=== PATIENT | female | born 1950 | race Caucasian/White ===

== ENCOUNTER 2016-10-28 08:10 | Outpatient (CLI) | payer MEDICARE, OTHER ==
[~2016-10-28] VITALS: Ht 162.6 cm; Wt 64.5 kg
--- NOTE | ~2016-10-28 | HEMODYNAMI ---
PATIENT:EPIFANIO MARTIN MEDICAL RECORD: [id number] : 50 LOCATION:D.CAT ADMISSION DATE: 10/28/16 Generatedon:11/01/20167:58 Patient name: EPIFANIO MARTIN Patient #: [id number] SSN: : 1950 Date of study: 10/28/2016 Page: Of Hemodynamic Procedure Report Patient Data Patient Demographics Procedure consent was obtained First Name: EPIFANIO Gender: Female Last Name: VERONICA : 1950 [facility] Initial: TATYANA Age: 66 year(s) Patient #: [id number] Race: Additional ID: [id number] Contact details [address]: [address] [place] [address] rd State: [facility] Zip code: [address] Past Medical History History of disease Date Diagnosis Comments Peripheral vascular disease Allergies Allergen Reaction Date Comments Reported Other allergy 10/28/2016 Prevacid, Sulfa Admission Admission Data Admission Date: 10/28/2016 Admission Time: 8:10 Weight (lbs.): 143.3 Weight (kg.): 65 Lab Results Lab Result Date: 10/28/2016 Lab Result Time: 0:00 Biochemistry Name Units Result Min Max BUN mg/dl 14 --(--*-)-- 7 18 Creatinine mg/dl 0.9 --(-*--)-- 0.6 1.3 Glucose mg/dl 222 --(----)-* 74 106 CBC Name Units Result Min Max Hemoglobin g/dl 13.4 -*(----)-- 13.5 17.5 Procedure Procedure Types Cath Procedure Peripheral Cath Diagnostic Procedure Cath Peripheral Gfzje-Rodcwes-Hlz-Off Peripheral vascular Intervention Stent Stent Iliac w/plasty Initial Procedure Description Procedure Date Procedure Date: 10/28/2016 Procedure Start Time: 12:45 Procedure End Time: 13:10 Procedure Staff Name Function Krysta Kelly RT Scrub Essie Chong RT Monitor Ramon Mancilla RT Supervisor Machine Workers Tony Cheung RN Nurse Jorge Patton MD Performing Physician Procedure Data Cath Procedure Fluoroscopy Diagnostic fluoroscopy Total fluoroscopy Time: 4.5 time: 4.5 min min Diagnostic fluoroscopy Total fluoroscopy dose: 200 dose: 200 mGy mGy Contrast Material Contrast Material Type Amount (ml) Isovue 300 117 Entry Location Entry Primary Successful Side Size Upsize 1 Upsize Entry Closure Rudolph ccessful Closure Location (Fr) (Fr) 2 (Fr) Remarks Device Remarks Femoral Right 5 Fr 6 Fr 6 Fr Vascade artery Mid-Length Short Closure System Diagnostic catheters Device Type Used For End Catheter Placement Diagnostic Infinity 5Fr Abdominal 3DRC catheter aortogram with runoff Cordis Tempo 5Fr UF catheter Procedure Complications No complications Procedure Medications Medication Administration Route Dosage Oxygen NC 2 l/min Lidocaine 2% added to field 20 Heparin Flush Bag added to field 2 bags (1000units/500ml NS) 0.9% NaCl I.V. 100 ml/hr Versed I.V. 1 mg Fentanyl I.V. 50 mcg Versed I.V. 1 mg Fentanyl I.V. 50 mcg Heparin Bolus I.V. 4000 units Versed I.V. 1 mg Fentanyl I.V. 50 mcg Versed I.V. 1 mg Fentanyl I.V. 50 mcg Hemodynamics Rest HGB: 13.4 (g/dl) Heart Rate: 63 (bpm) Snapshots Pre Cath Intra NCS Post Cath Vital Signs Time Heart Resp SPO2 NIBP (mmHg) Rhythm Pain Sedation Rate (ipm) (%) Status Level (bpm) 12:26:21 72 26 99 180/76(138) NSR 0 (11) 10(A) , No pain 12:30:52 58 20 99 179/67(125) NSR 0 (11) 10(A) , No pain 12:35:24 60 18 99 155/66(116) NSR 0 (11) 10(A) , No pain 12:39:46 67 16 97 144/65(130) NSR 0 (11) 10(A) , No pain 12:44:07 67 15 97 157/61(115) NSR 0 (11) 10(A) , No pain 12:48:29 69 19 96 145/68(112) NSR 0 (11) 10(A) , No pain 12:52:49 75 16 96 124/51(99) NSR 0 (11) 9(A) , No pain 12:57:03 73 16 95 122/54(94) NSR 0 (11) 9(A) , No pain 13:01:19 81 14 94 124/53(107) NSR 0 (11) 9(A) , No pain 13:05:31 73 16 95 139/61(102) NSR 0 (11) 10(A) , No pain 13:09:30 No Cuff NSR 0 (11) 10(A) , No pain Medications Time Medication Route Dose Verified Delivered Reason Notes Effectiveness by by 12:40:44 Oxygen NC 2 Jorge Buffie used for l/min Abdi Cheung RN procedure 12:40:51 Lidocaine 2% added 20ml Jorge Jorge for local to vial Abdi Patton MD anesthetic field 12:40:57 Heparin Flush added 2 Jorge Jorge used for Bag to bags Abdi Patton MD procedure (1000units/500ml field NS) 12:41:09 0.9% NaCl I.V. 100 Jorge Buffie Per physician ml/hr Abdi Cheung RN 12:43:27 Versed I.V. 1 mg Jorge Buffie for sedation Abdi Cheung RN 12:43:33 Fentanyl I.V. 50 Jorge Buffie for sedation mcg Abdi Cheung RN 12:48:30 Versed I.V. 1 mg Jorge Buffie for sedation Abdi Cheung RN 12:48:33 Fentanyl I.V. 50 Jorge Buffie for sedation mcg Abdi Cheung RN 12:50:44 Heparin Bolus I.V. 4000 Jorge Buffie for verifi ed units Abdi Cheung RN anticoagulation with dr patton 12:54:54 Versed I.V. 1 mg Jorge Buffie for sedation Abdi Cheung RN 12:54:59 Fentanyl I.V. 50 Jorge Buffie for sedation mcg Abdi Cheung RN 12:58:07 Versed I.V. 1 mg Jorge Buffie for sedation Abdi Cheung RN 12:58:11 Fentanyl I.V. 50 Jorge Buffie for sedation mcg Abdi Cheung RN Procedure Log Time Note 12:01:55 Ramon Mancilla RT(R) sent for patient. Start room use. 12:12:56 Time tracking: Regular hours 12:13:00 Plan of Care:Hemodynamics will remain stable., Cardiac rhythm will remain stable., Comfort level will be maintained., Respiratory function will remain adequate., Patient/ family verbilizes understanding of procedure., Procedure tolerated without complication., Recovers from procedure without complications.. 12:19:53 Patient received from Outpatients to CCL 1 Alert and oriented. Tansferred to table in Supine position. 12:19:54 Warm blankets applied, and nettie hugger turned on for patient comfort. 12:19:55 Correct patient and procedure confirmed by team. 12:19:56 Signed procedure consent form obtained from patient. 12:19:57 ECG and BP/O2 sat monitors applied to patient. 12:25:07 Vital chart was started 12:25:08 Full Disclosure recording started 12:27:37 Baseline sample Acquired. 12::44 Rhythm: sinus rhythm 12::56 H&P Date Dictated: 10/25/2016 Within 30 days and on chart., H&P Addendum completed by physician on day of procedure. (MUST COMPLETE FOR ALL OUTPATIENTS). 12::58 Pre-op teaching completed and patient verbalized understanding. 12::58 Pre-procedure instructions explained to patient. 12:28:00 Family in waiting room. 12:28:04 Patient NPO since Midnight. 12:28:22 Patient allergic to Other allergyPrevacid, Sulfa 12:28:40 Is the patient allergic to Iodine/contrast media? No. 12:28:41 Was the patient premedicated? No 12:28:43 Is patient on blood thinner?Yes 12:28:45 ACC The patient was administered the following blood thiners within the last 24 hours: ACCPlavix 12:28:50 Patient diabetic? No. 12:28:59 If diabetic: On Metformin? No 12:29:05 Previous problem with sedation/anesthesia? No ? 12:29:21 Snore? Yes 12:29:22 Sleep apnea? No 12:29:43 Deviated septum? No 12:29:44 Opens mouth fully? Yes 12:29:45 Sticks out tongue? Yes 12:29:51 Airway obstruction? No ? 12:29:55 Dentures? No ? 12:29:59 Pre procedure: right dorsailis pedis pulse 1+ Palpable, but thready & weak; easily obliterated 12:30:09 Modified Alfred's test Radial < 7 seconds 12:30:12 Patient pain scale 0/10 ?. 12:30:23 IV patent on arrival in left hand with 0.9% NaCl at [facility]. 12:35:20 Lab Result : Creatinine 0.9 mg/dl 12:35:20 Lab Result : Hemoglobin 13.4 g/dl 12:35:20 Lab Result : Glucose 222 mg/dl 12:35:20 Lab Result : BUN 14 mg/dl 12:35:23 Lab results completed and on chart. 12:35:27 Right groin area was prepped with chlora-prep and draped in sterile fashion 12:35:28 Sharps counted by scrub and verified by R.N. 12:35:28 Alarms reviewed by R. N. 12:35:39 Use device set Femoral Dx 12:35:43 Acist Syringe opened to sterile field. 12:35:44 Medline Cath Pack opened to sterile field. 12:35:44 Bag Decanter opened to sterile field. 12:35:45 St Roosevelt 260cm J .035 wire opened to sterile field. 12:35:45 Terumo 5Fr Rich[place] Sheath opened to sterile field. 12:35:47 Acist Hand Control opened to sterile field. 12:35:48 Acist Manifold opened to sterile field. 12:35:49 Tegaderm 4 x 4 opened to sterile field. 12:36:36 Physician paged 12:37:54 Zero performed for pressure channel P1 12:37:58 Zero performed for pressure channel P1 12:40:07 Patient Weight : 143.3 lbs 12:40:44 Oxygen 2 l/min NC was given by Tony Cheung RN; used for procedure; 12:40:51 Lidocaine 2% 20ml vial added to field was given by Jorge Patton MD; for local anesthetic; 12:40:57 Heparin Flush Bag (1000units/500ml NS) 2 bags added to field was given by Jorge Patton MD; used for procedure; 12:41:09 0.9% NaCl 100 ml/hr I.V. was given by Tony Cheung RN; Per physician; 12:41:47 --------ALL STOP TIME OUT------ 12:41:48 Final Timeout: patient, procedure, and site verified with staff and physician. All members of the team are in agreement. 12:41:50 Bilateral groins site verified by team. 12:41:54 Physical assessment completed. ASA score P 2 - A patient with mild systemic disease as per Jorge Patton MD. 12:41:58 Sedation plan: IV Moderate Sedation Versed, Fentanyl 12:43:27 Versed 1 mg I.V. was given by Tony Cheung RN; for sedation; 12:43:33 Fentanyl 50 mcg I.V. was given by Tony Cheung RN; for sedation; 12:45:29 Procedure started. 12:45:43 Local anesthetic to right femoral artery with Lidocaine 2% by Jorge Patton MD.INITIAL ACCESS ONLY 12:46:15 A 5 Fr sheath was inserted into the Right Femoral artery 12:46:24 5 Fr UF guide catheter was inserted over the wire 12:47:02 Guide catheter removed. 12:47:25 A Diagnostic Infinity 5Fr 3DRC catheter was advanced over the wire and used for Abdominal aortogram with runoff. 12:47:48 LONG STIFF GLIDE wire advanced. 12:48:04 Terumo ANGLED SS 260CM glide wire opened to sterile field. 12:48:30 Versed 1 mg I.V. was given by Tony Cheung RN; for sedation; 12:48:33 Fentanyl 50 mcg I.V. was given by Tony Cheung RN; for sedation; 12:50:17 WIRE ACROSS LESION 12:50:44 Heparin Bolus 4000 units I.V. was given by Tony Cheung RN; for anticoagulation; verified with dr patton 12:50:50 Terumo TORQUE DEVICE PLASTIC .038 opened to sterile field. 12:50:57 A Cordis Tempo 5Fr UF catheter was advanced over the wire and used for . 12:51:11 Cordis 6Fr Brite Tip 35cm Sheath opened to sterile field. 12:51:28 Guide catheter removed. 12:51:37 Sheath upsized to a 6 Fr Mid-Length. 12:52:33 5 Fr UF guide catheter was inserted over the wire 12:52:36 Abdominal angiogram w/ runoff was performed. 12:52:42 Left leg runoff performed. 12:52:43 Right leg runoff performed. 12:53:24 Merit BasixCompak Inflation Kit opened to sterile field. 12:54:32 Cordis 6Fr Brite Tip 35cm Sheath opened to sterile field. 12:54:54 Versed 1 mg I.V. was given by Tony Cheung RN; for sedation; 12:54:59 Fentanyl 50 mcg I.V. was given by Tony Cheung RN; for sedation; 12:57:21 Inflation number: 1 A Cordis Powerflex Pro 6.0 x 40 x 135cm balloon was prepped and advanced across the Ostial Common Iliac, Right, then inflated to 13 NAVEEN for 0:08 (min:sec). 12:57:33 Inflation number: 2 The Cordis Powerflex Pro 6.0 x 40 x 135cm balloon was reinflated across the Ostial Common Iliac, Right, to 11 NAVEEN for 0:10 (min:sec). 12:58:07 Versed 1 mg I.V. was given by Tony Cheung RN; for sedation; 12:58:11 Fentanyl 50 mcg I.V. was given by Tony Cheung RN; for sedation; 12:58:18 Balloon removed over the wire. 13:00:55 Inflation Number: 3 A Cordis Shea 6 x 18 x 135 stent was prepped and advanced across the Ostial Common Iliac, Right. The stent was deployed at 17 NAVEEN for 0:24 (min:sec). 13:01:06 Stent catheter was removed intact over wire. 13:01:17 Sheath upsized to a 6 Fr Short. 13:02:00 Sheath removed intact; hemostasis achieved with Vascade Closure System to the Right Femoral artery. 13:02:37 Terumo 6Fr Richland Sheath opened to sterile field. 13:02:42 Vascade 6/7 Fr Closure Device opened to sterile field. 13:05:14 Contrast amount:Isovue 300 117ml. 13:05:18 Procedure ended.(Physican Out) 13:05:29 Fluoroscopy time 04.50 minutes. 13:05:34 Flurop Dose total: 200 13:05:34 Fluoroscopy dose: 200 mGy 13:05:35 Sharps counted by scrub and verified by R.N. 13:05:36 Insertion/operative site no bleeding no hematoma. 13:05:39 Post-op/insertion site Right Femoral artery dressed using a 4 x 4 and Tegaderm. 13:05:43 Post right femoral artery:stable 13:05:44 Post Procedure Pulses reassessed and unchanged 13:05:47 Post procedure: right dorsailis pedis pulse 1+ Palpable, but thready & weak; easily obliterated. 13:06:21 Procedure type changed to Cath procedure, Peripheral Cath Diagnostic Procedure, Cath Peripheral, Egbrn-Nokobvq-Lfo-Off, Peripheral vascular Intervention, Stent, Stent Iliac w/plasty Initial 13:09:54 Post procedure rhythm: sinus rhythm 13:09:56 Post procedure instruction explained to patient.Patient verbalizes understanding. 13:09:56 Procedure and supply charges have been captured, reviewed, submitted and are correct. 13:10:00 Procedure Complication : No complications 13:10:02 Vital chart was stopped 13:10:03 See physician's report for complete and final results. 13:10:05 Report given to Pre/Post Procedure Room. 13:10:08 Patient transfered to Pre/Post Procedure Room with Stretcher. 13:10:10 Full Disclosure recording stopped 13:10:10 Procedure ended. 13:10:17 ACC-PCI Only Patient was given prescriptions, or instructed by Jorge Patton MD to start/continue the following medications upon discharge: Plavix 13:10:21 End room use (Document Last) 7:57:51 Left Femoral access not attempted. All pertaining notes removed. Added RFA closure with vascade. SCounts RT(R) Intervention Summary Intervention Notes Time ActionType Lesion and Equipment Action# Pressure Duration Attributes Used 12:57:21 Inflate Ostial Cordis 1 13 00:08 balloon Common Powerflex Iliac, Pro 6.0 x Right 40 x 135cm balloon 12:57:33 Reinflate Ostial Cordis 2 11 00:10 balloon Common Powerflex Iliac, Pro 6.0 x Right 40 x 135cm balloon 13:00:55 Place stent Ostial Cordis 3 17 00:24 Common Shea 6 Iliac, x 18 x Right 135 stent Device Usage Item Name Manufacture Quantity Catalog Hospital Part Current Minima l Lot# / Number Charge Number Stock Stock Serial# Code [facility] 1 [id number] [id number] 045839 020339 20 [employer] Bag Microtek 1 [id number] 785842 51089 855592 5 [employer] Inc. Medline Cardinal 1 [id number] 936072 55255 549713 5 Apps & Zerts Terumo 5Fr Terumo 1 [id number] 827406 656719 239794 [address] Roosevelt 1 949884 633488 911441 022825 30 260cm J .035 wire Acist Hand Acist 1 02644 538938 029113 890141 5 Control Medical Systems Inc Acist Acist 1 31026 541280 383215 363463 5 Manifold Medical Systems Inc Tegaderm 4 3M 1 1626W 753898 596446 518017 5 x 4 Diagnostic Cardinal 1 [id number] 292652 785428 760497 9 Infinity Health 5Fr 3DRC catheter Terumo Terumo 1 [id number] 707269 505746 306356 [address] SS 260CM glide wire Terumo [place] 1 TD01 047868 430004 942742 5 TORQUE Scientific DEVICE PLASTIC .038 Cordis Cardinal 1 [id number] 462961 359210 685754 10 Tempo 5Fr Health UF catheter Cordis 6Fr Cardinal 2 [id number] 809320 183417 033636 1 Brite Tip Health 35cm Sheath Merit Merit 1 [id number] 959710 522399 915164 15 [employer]ishk Medical Inflation Kit Cordis Cardinal 1 [id number] 484971 937975 252845 5 Powerflex Health Pro 6.0 x 40 x 135cm balloon Cordis Cardinal 1 [id number] 798691 882816 5 Shea 6 x Health 18 x 135 stent Terumo 6Fr Terumo 1 [id number] 862066 325481 116181 40 [place] Sheath Vascade 6/7 Cardiva 1 [id number] 431050 627460 354452 5 Fr Closure Medical, Device Inc. Signature Audit Walsh Stage Time Signature Unsigned Intra-Procedure 10/28/2016 Ramon Chaparro Counts 1:12:58 PM RT(R) RT(R) 11/01/2016 7:52:27 AM Intra-Procedure 11/01/2016 Krysta 7:58:08 AM Counts RT(R) Signatures Monitor : Essie Chong RT Signature : Date : Time : [facility] [address] [facility], [place] [address]
[2016-10-28] MEDS ORDERED: PRINIVIL20 MG PO (09:14)
[2016-10-28] MEDS ORDERED: ZOCOR80 MG PO (09:15)
[2016-10-28] MEDS ORDERED: TAMOXIFEN CITRA20 MG PO (09:15)
[2016-10-28] MEDS ORDERED: BAYER CHEWABLE81 MG PO (09:16)
[2016-10-28] MEDS ORDERED: PLAVIX75 MG PO (09:16)
[2016-10-28 09:21] LABS: BASOPHILS 0.4 % (0.0-2.0); HEMATOCRIT 39.5 % (36.0-48.0); HEMOGLOBIN 13.4 g/dL (12-16); IMMATURE GRANULOCYTES 0.3 % (0-5); LYMPHOCYTES 33.4 % (15-50); MCH 32.1 pg (26.0-34.0); MCHC 33.9 g/dL (31.0-37.0); MCV 94.5 fL (80.0-100.0); MEAN PLATELET VOLUME 10.5 fL (7.4-10.4); MONOCYTES 4.6 % (2-11); NEUTROPHILS 57.3 % (40-80); PLATELET COUNT 56 10x3/uL (130-400); RBC 4.18 10x6/uL (4.00-5.40); RDW 11.9 % (11.5-14.5); WBC 7.2 10x3/uL (4.8-10.8)
[2016-10-28 09:25] VITALS: BP 141/49; Ht 162.6 cm; Wt 64.5 kg
[2016-10-28 09:38] LABS: ANION GAP 13.3 mmol/L (8-16); CALCIUM 9.2 mg/dL (8.5-10.1); CREATININE - SERUM 0.9 mg/dL (0.6-1.3); POTASSIUM - SERUM 4.3 mmol/L (3.5-5.1)
--- NOTE | 2016-10-28 13:45 | NUR ---
1345 VSS WITH NO DISTRESS NOTED. AT SIDE SPEAKING TO DR AMADOR ORDERS FOR PATIENT TO RETURN NEXT MONDAY FOR ANOTHER PROCEDURE. OFFICE NOTIFIED
--- NOTE | 2016-10-28 14:03 | NUR ---
HR 68 BP 153/58 CHEST PAIN IS DENIED 6 FR VASCADE R/GROIN CDI NO BLEEDING NO HEMATOMA NOTED. INSTRUCTED PATIENT TO KEEP HEAD FLAT ON PILLOW WITH RLE STRAIGHT
--- NOTE | 2016-10-28 14:28 | NUR ---
SANDWICH AND SODA TO BEDSIDE WITH TO ASSIST. R/GROIN CDI NO BLEEDING NO HEMATOMA NOTED
--- NOTE | 2016-10-28 15:48 | NUR ---
ALL VITALS WNL. R GROIN REMAINS C/D/I WITH NO HEMATOMA OR BLEEDING. AT BEDSIDE.
--- NOTE | 2016-10-28 16:56 | NUR ---
1630 ELEVATED HOB, WILL MONITOR R GROIN FOR BLEEDING. ALL VITALS WNL.
--- NOTE | 2016-10-28 17:05 | NUR ---
PIV REMOVED FROM LEFT HAND WITH BANDAID APPLIED. UP TO BEDSIDE TO DRESS WITH ASSIST FROM . AMBULATED TO BATHROOM TO VOID.
--- NOTE | 2016-10-28 17:29 | NUR ---
PATIENT C/O HEARTBURN, NO EKG CHANGES. DENIES CHEST PAIN. V/O FOR GI COCTAIL GIVEN. WILL MONITOR FOR EFFCTIVENESS. D/C INSTRUCTIONS DISCUSSED WITH PATIENT AND , WHEELED OUT VIA WHEELCHAIR.
--- NOTE | 2016-11-04 08:46 | OP ---
PATIENT NAME: EPIFANIO MARTIN MEDICAL RECORD: [id number] :50 LOCATION:D.CAT ADMISSION DATE: SURGEON: ANNMARIE AMADOR MD DATE OF OPERATION: 10/28/2016 PROCEDURES: 1. Stent placement, iliac right. 2. SALES AND SERVICE REPRESENTATIVE iliac, right. 3. Aortofemoral runoff. INDICATION: Claudication and peripheral vascular disease. PROCEDURE IN DETAIL: After informed consent was obtained and after detailed explanation of risks, benefits as well as alternative therapies, the patient elected to proceed with angiogram and angioplasty. The right femoral area was prepped and draped in normal sterile fashion. The right femoral artery was cannulated via modified Seldinger technique with placement of 6-Serbian sheath. All catheters exchanged through the sheath. FINDINGS: Abdominal aortography was performed. The catheter was pulled down for aortofemoral runoff. Abdominal aortography reveals no significant abdominal aortic disease. Stents from the legs to extend into the lower abdominal aorta. There is a renal artery stent on the right, it does appear to have at least 80% in-stent restenosis. RIGHT LE. There are stents throughout the common and external iliac just after the stents, there is a 90% stenosis. 2. Femoral system: The common superficial and deep femoral have moderate irregularities, but no flow-limiting stenosis. 3. Popliteal and infrapopliteal vessels are widely patent with good 3-vessel runoff to the foot. LEFT LE. There were previously placed stents throughout the common and external iliac with 2 areas of in-stent restenosis to at least 80%. 2. Femoral system: The common superficial and deep femoral have moderate irregularities, but no flow-limiting stenosis. 3. Popliteal and infrapopliteal vessels are widely patent with good 3-vessel runoff to the foot. SALES AND SERVICE REPRESENTATIVE STENT OF THE ILIAC ON THE RIGHT: We were able to get a 6 x 18 Cordis Shea stent in there, we took this at 15 atmospheres. Result was 30% to 40% residual stenosis despite ballooning that is up 15 atmospheres, this would not give ____ as it was a heavily calcified vessel. IMPRESSION: Successful SALES AND SERVICE REPRESENTATIVE stent of the right iliac going from 90% initial stenosis to 40% residual. TRANSINT:[id number] Voice Confirmation ID: [id number] DOCUMENT ID: [id number] OPERATIVE REPORT [id number] EPIFANIO MARTINANNMARIE SORIA MD at 0846 CC: [id number] DICTATION DATE: 10/28/16 1309 PRESIDING JUDGE: 10/28/16 1946 DEP CLI 10/28/16 [place] [id number] [place] [address]
== END 2016-10-28 17:31 | disposition home or self-care (01) ==
LOC: D.CATH 08:10
PROVIDERS: Internal Medicine Interventional Cardiology
DX: I70.211 Atherosclerosis of native arteries of extremities with intermittent claudication, right leg (principal); T82.856A Stenosis of peripheral vascular stent, initial encounter

== ENCOUNTER 2016-11-04 08:20 | Outpatient (CLI) | payer MEDICARE, OTHER ==
[~2016-11-04] VITALS: Ht 162.6 cm; Wt 64.5 kg
--- NOTE | ~2016-11-04 | HEMODYNAMI ---
PATIENT:EPIFANIO MARTIN MEDICAL RECORD: [id number] : 50 LOCATION:D.CAT ADMISSION DATE: 11/04/16 Generatedon:11/04/201610:52 Patient name: EPIFANIO MARTIN Patient #: [id number] SSN: : 1950 Date of study: 11/04/2016 Page: Of Hemodynamic Procedure Report Patient Data Patient Demographics Procedure consent was obtained First Name: EPIFANIO Gender: Female Last Name: VERONICA : 1950 [facility] Initial: TATYANA Age: 66 year(s) Patient #: [id number] Race: Additional ID: [id number] Contact details Address: [address] [place] [address] rd State: [facility] Zip code: [address] Past Medical History History of disease Date Diagnosis Comments Peripheral vascular disease Allergies Allergen Reaction Date Comments Reported Other allergy 10/28/2016 Prevacid, Sulfa Admission Admission Data Admission Date: 11/04/2016 Admission Time: 8:20 Procedure Procedure Types Cath Procedure Miscellaneous Procedures Moderate Sedation up to 15 minutes Peripheral vascular Intervention Stent Stent Iliac w/plasty Initial Procedure Description Procedure Date Procedure Date: 11/04/2016 Procedure Start Time: 10:34 Procedure End Time: 10:50 Procedure Staff Name Function Jorge Patton MD Performing Physician John Warner RT Scrub Kael Davis RT Monitor Kadie Huerta RN Nurse Rmaesh Seals RN Instrument Shop Supervisor Procedure Data Cath Procedure Fluoroscopy Diagnostic fluoroscopy Total fluoroscopy Time: 2.5 time: 2.5 min min Diagnostic fluoroscopy Total fluoroscopy dose: 125 dose: 125 mGy mGy Contrast Material Contrast Material Type Amount (ml) Isovue 300 49 Entry Location Entry Primary Successful Side Size (Fr) Upsize Upsize Entry Closure S uccessful Closure Location 1 (Fr) 2 (Fr) Remarks Device Remarks Femoral Left 6 Fr 6 Fr Vascade artery Mid-Length Short Closure System Estimated blood loss: 10 ml Procedure Complications No complications Procedure Medications Medication Administration Route Dosage Oxygen NC 2 l/min Heparin Flush Bag added to field 2 bags (1000units/500ml NS) Lidocaine 2% added to field 20 Fentanyl I.V. 50 mcg Versed I.V. 1 mg Fentanyl I.V. 25 mcg Versed I.V. 0.5 mg Fentanyl I.V. 25 mcg Versed I.V. 0.5 mg Hemodynamics Rest HGB: 13.4 (g/dl) Heart Rate: 63 (bpm) Snapshots Pre Cath Intra NCS Post Cath Vital Signs Time Heart Resp SPO2 NIBP (mmHg) Rhythm Pain Sedation Rate (ipm) (%) Status Level (bpm) 10:12:09 64 18 98 154/59(112) NSR 0 (11) 10(A) , No pain 10:27:39 66 21 100 148/60(109) NSR 0 (11) 10(A) , No pain 10:31:57 65 16 98 133/58(100) NSR 0 (11) 9(A) , No pain 10:36:11 66 18 94 131/54(93) NSR 0 (11) 9(A) , No pain 10:40:23 66 20 95 128/58(90) NSR 0 (11) 9(A) , No pain 10:44:33 69 17 97 137/63(88) NSR 0 (11) 9(A) , No pain 10:48:47 66 12 97 128/64(92) NSR 0 (11) 9(A) , No pain Medications Time Medication Route Dose Verified Delivered Reason Notes Effec tiveness by by 10:24:33 Oxygen NC 2 Kadie Kadie used for l/min Huerta Huerta viscosity inspector RN 10:24:41 Heparin Flush added 2 Kadie Kadie used for Bag to bags Huerta Huerta procedure (1000units/500ml field RN RN NS) 10:24:48 Lidocaine 2% added 20ml Kadie Kadie used for to vial Huerta Huerta procedure field RN RN 10:26:57 Fentanyl I.V. 50 Kadie Kadie for mcg Huerta Huerta sedation RN RN 10:27:04 Versed I.V. 1 mg Kadie Kadie for Huerta Huerta sedation RN RN 10:33:51 Fentanyl I.V. 25 Kadie Kadie for mcg Huerta Huerta sedation RN RN 10:33:54 Versed I.V. 0.5 Kadie Kadie for mg Huerta Huerta sedation RN RN 10:34:46 Fentanyl I.V. 25 Kadie Engle for mcg Huerta Huerta sedation RN RN 10:34:49 Versed I.V. 0.5 Kadie Engle for mg Huerta Huerta sedation RN independent film maker Log Time Note 9:44:17 Informed consent obtained and on chart 9:45:07 Ramesh Seals RN sent for patient. Start room use. 9:45:09 Time tracking: Regular hours 9:45:12 Plan of Care:Hemodynamics will remain stable., Cardiac rhythm will remain stable., Comfort level will be maintained., Respiratory function will remain adequate., Patient/ family verbilizes understanding of procedure., Procedure tolerated without complication., Recovers from procedure without complications.. 10:10:39 Patient received from Pre/Post Procedure Room to CCL 2 Alert and oriented. Tansferred to table in Supine position. 10:10:40 Warm blankets applied, and nettie hugger turned on for patient comfort. 10:10:41 Correct patient and procedure confirmed by team. 10:10:41 ECG and BP/O2 sat monitors applied to patient. 10:22:29 Vital chart was started 10:23:19 Baseline sample Acquired. 10:24:33 Oxygen 2 l/min NC was given by Kadie Huerta RN; used for procedure; 10:24:41 Heparin Flush Bag (1000units/500ml NS) 2 bags added to field was given by Kadie Huerta RN; used for procedure; 10:24:48 Lidocaine 2% 20ml vial added to field was given by Kadie Huerta RN; used for procedure; 10:24:48 Rhythm: sinus rhythm 10:24:49 Full Disclosure recording started 10:25:13 H&P Date Dictated: 11/04/2016 New H&P dictated by physician.. 10:25:14 Pre-procedure instructions explained to patient. 10:25:14 Pre-op teaching completed and patient verbalized understanding. 10:25:15 Family in waiting room. 10:25:16 Patient NPO since Midnight. 10:25:23 Is the patient allergic to Iodine/contrast media? No. 10:25:25 Is patient on blood thinner?Yes 10:25:27 ACC The patient was administered the following blood thiners within the last 24 hours: ACCPlavix 10:25:29 Patient diabetic? No. 10:25:34 Patient not . Patient is over age 55. 10:25:36 Previous problem with sedation/anesthesia? No ? 10:25:37 Snore? Yes 10:25:38 Sleep apnea? No 10:25:39 Deviated septum? No 10:25:40 Opens mouth fully? Yes 10:25:41 Sticks out tongue? Yes 10:25:42 Airway obstruction? No ? 10:25:44 Dentures? No ? 10:25:48 Pre procedure: left dorsailis pedis pulse 1+ Palpable, but thready & weak; easily obliterated 10:25:56 Patient pain scale 0/10 ?. 10:26:00 IV patent on arrival in left forearm with 0.9% NaCl at [facility]. 10:26:03 Lab results completed and on chart. 10:26:08 Left groin area was prepped with chlora-prep and draped in sterile fashion 10:26:11 Alarms reviewed by R. N. 10:26:12 Sharps counted by scrub and verified by R.N. 10::13 --------ALL STOP TIME OUT------ 10:26:13 Final Timeout: patient, procedure, and site verified with staff and physician. All members of the team are in agreement. 10:26:30 Left groin site verified by team. 10:26:40 Physical assessment completed. ASA score P 2 - A patient with mild systemic disease as per Jorge Patton MD. 10:26:45 Sedation plan: IV Moderate Sedation Versed, Fentanyl 10::57 Fentanyl 50 mcg I.V. was given by Kadie Huerta RN; for sedation; 10:27:04 Versed 1 mg I.V. was given by Kadie Huerta RN; for sedation; 10:33:47 Zero performed for pressure channel P1 10:33:51 Fentanyl 25 mcg I.V. was given by Kadie Huerta RN; for sedation; 10:33:54 Versed 0.5 mg I.V. was given by Kadie Huerta RN; for sedation; 10:34:10 Use device set Femoral PCI 10:34:12 Tegaderm 4 x 4 opened to sterile field. 10:34:14 Acist Manifold opened to sterile field. 10:34:15 Acist Syringe opened to sterile field. 10:34:15 Acist Hand Control opened to sterile field. 10:34:16 Bag Decanter opened to sterile field. 10:34:16 Medline Cath Pack opened to sterile field. 10:34:17 Terumo 6Fr Limekiln Sheath opened to sterile field. 10:34:17 St Roosevelt 260cm J .035 wire opened to sterile field. 10:34:17 Merit BasixCompak Inflation Kit opened to sterile field. 10:34:42 Procedure started. 10:34:46 Fentanyl 25 mcg I.V. was given by Kadie Huerta RN; for sedation; 10:34:46 Local anesthetic to left femerol artery with Lidocaine 2% by Jorge Patton MD.INITIAL ACCESS ONLY 10:34:49 Versed 0.5 mg I.V. was given by Kadie Huerta RN; for sedation; 10:35:18 A 6 Fr Mid-Length sheath was inserted into the Left Femoral artery 10:37:12 Cordis 6Fr Brite Tip 35cm Sheath opened to sterile field. 10:38:00 Wire advanced across lesion. 10:38:28 Inflation number: 1 A Cordis Powerflex Pro 7.0 x 40 x 135cm balloon was prepped and advanced across the Proximal Common Iliac, Left, then inflated to 9 NAVEEN for 0:10 (min:sec). 10:39:29 Multiple inflation made at 9 Atms. 10:40:09 Balloon removed over the wire. 10:41:05 Inflation Number: 2 A Cordis Shea 7 x 29 x 135 stent was prepped and advanced across the Proximal Common Iliac, Left. The stent was deployed at 13 NAVEEN for 0:10 (min:sec). 10:41:47 Stent catheter was removed intact over wire. 10:41:48 Wire removed. 10:41:59 Vascade 6/7 Fr Closure Device opened to sterile field. 10:42:11 Sheath upsized to a 6 Fr Short. 10:42:28 Sheath removed intact; hemostasis achieved with Vascade Closure System to the Left Femoral artery. 10:42:31 Procedure ended.(Physican Out) 10:44:56 Fluoroscopy time 02.50 minutes. 10:45:07 Flurop Dose total: 125 10:45:07 Fluoroscopy dose: 125 mGy 10:46:20 Contrast amount:Isovue 300 49ml. 10:46:24 Sharps counted by scrub and verified by R.N. 10:47:25 Insertion/operative site no bleeding no hematoma. 10:47:29 Post-op/insertion site Left Femoral artery dressed using a 4 x 4 and Tegaderm. 10:47:35 Post Procedure Pulses reassessed and unchanged 10:47:38 Post procedure: left dorsailis pedis pulse 1+ Palpable, but thready & weak; easily obliterated. 10:47:40 Post-procedure physical assessment completed. ASA score P 2 - A patient with mild systemic disease as per Jorge Patton MD. 10:47:43 Post procedure rhythm: unchanged. 10:47:45 Estimated blood loss: 10 ml 10:47:50 Post procedure instruction explained to patient.Patient verbalizes understanding. 10:47:50 Patient needs reinforcement of post procedure teaching. 10:48:01 Procedure type changed to Cath procedure, Miscellaneous Procedures, Moderate Sedation up to 15 minutes, Peripheral vascular Intervention, Stent, Stent Iliac w/plasty Initial 10:48:04 Procedure Complication : No complications 10:48:30 Procedure and supply charges have been captured, reviewed, submitted and are correct. 10:50:44 Vital chart was stopped 10:50:45 See physician's report for complete and final results. 10:50:48 Report given to Pre/Post Procedure Room. 10:50:53 Patient transfered to Pre/Post Procedure Room with Stretcher. 10:50:55 Procedure ended. 10:50:55 Full Disclosure recording stopped 10:51:03 ACC-PCI Only Patient was given prescriptions, or instructed by Jorge Patton MD to start/continue the following medications upon discharge: Plavix 10:51:04 End room use (Document Last) Intervention Summary Intervention Notes Time ActionType Lesion and Equipment Action# Pressure Duration Attributes Used 10:38:28 Inflate Proximal Cordis 1 9 00:10 balloon Common Powerflex Iliac, Left Pro 7.0 x 40 x 135cm balloon 10:41:05 Place stent Proximal Cordis 2 13 00:10 Common Shea 7 Iliac, Left x 29 x 135 stent Device Usage Item Name Manufacture Quantity Catalog Hospital Part Current Minima l Lot# / Number Charge Number Stock Stock Serial# Code Tegaderm 4 3M 1 [id number] [id number] 014325 5 x 4 Acist Acist 1 38025 331444 398176 948091 5 Manifold Medical Systems Inc Acist Acist 1 38347 697345 275193 137792 20 Syringe Medical Systems Inc Acist Hand Acist 1 89128 695579 314043 902137 5 Control Medical Systems Inc Bag Microtek 1 2002S 185361 95184 682860 5 Decanter Medical Inc. Medline Cardinal 1 [id number] 691090 21192 347220 5 Cath Pack Health Terumo 6Fr Terumo 1 [id number] 104932 958289 030678 [address] Roosevelt 1 [id number] 747254 687707 393307 30 260cm J .035 wire Merit Merit 1 MQ2921 847911 848099 662024 15 Push Health Medical Inflation Kit Cordis 6Fr Cardinal 1 [id number] 890264 906878 711286 1 Brite Tip Health 35cm Sheath Cordis Cardinal 1 [id number] 267552 326979 368761 5 Powerflex Health Pro 7.0 x 40 x 135cm balloon Cordis Cardinal 1 [id number] 833624 773364 5 Shea 7 x Health 29 x 135 stent Vascade 6/7 Cardiva 1 [id number] 366857 197309 345508 5 Fr Closure Medical, Device Inc. Signature Audit [place] Stage Time Signature Unsigned Intra-Procedure 11/04/2016 Kael Davis 10:52:04 AM RT(R) Signatures Monitor : Kael Davis RT Signature : Date : Time : [facility] [address] [place] [address]
[~2016-11-04 08:20] MED LIST: BAYER CHEWABLE81 MG PO; PLAVIX75 MG PO; PRINIVIL20 MG PO; TAMOXIFEN CITRA20 MG PO; ZOCOR80 MG PO
[2016-11-04 08:49] VITALS: BP 165/58; Ht 162.6 cm; Wt 64.5 kg
[2016-11-04 09:02] LABS: BASOPHILS 0.5 % (0.0-2.0); EOSINOPHILS 3.9 % (0-7); HEMATOCRIT 39.7 % (36.0-48.0); HEMOGLOBIN 13.5 g/dL (12-16); IMMATURE GRANULOCYTES 0.2 % (0-5); LYMPHOCYTES 31.1 % (15-50); MCH 32.1 pg (26.0-34.0); MCV 94.3 fL (80.0-100.0); MEAN PLATELET VOLUME 10.5 fL (7.4-10.4); MONOCYTES 5.6 % (2-11); NEUTROPHILS 58.7 % (40-80); RBC 4.21 10x6/uL (4.00-5.40); RDW 11.8 % (11.5-14.5); WBC 8.9 10x3/uL (4.8-10.8)
[2016-11-04 09:04] LABS: PLATELET COUNT 188 10x3/uL (130-400)
[2016-11-04 09:25] LABS: ANION GAP 10.9 mmol/L (8-16); CALCIUM 9.2 mg/dL (8.5-10.1); CARBON DIOXIDE 26.4 mmol/L (21.0-32.0); POTASSIUM - SERUM 4.3 mmol/L (3.5-5.1)
--- NOTE | 2016-11-04 11:15 | NUR ---
NSR RATE 62 CHEST PAIN DENIED BP 148/53. 6 FR VASCADE L/GROIN CDI NO BLEEDING NO HEMATOMA NOTED INSTRUCTED PATIENT TO KEEP HEAD FLAT ON PILLOW WITH LLE STRAIGHT
--- NOTE | 2016-11-04 11:45 | NUR ---
1145 NO CHANGE IN ASSESSMENT 6 FR VASCADE L/GROIN CDI NO BLEEDING NO HEMATOMA NOTED. 1215 VSS WITH 6 FR VASCADE L/GROIN CDI NO BLEEDING NO HEMATOMA NOTED PO FLUIDS TOLERATED WITH NAUSEA DENIED
--- NOTE | 2016-11-04 13:25 | NUR ---
VSS WITH CHEST PAIN DENIED. 6 FR VASCADE L/GROIN CDI NO BLEEDING NO HEMATOMA NOTED. SANDWICH TRAY PROVIDED TO BEDSIDE WITH ASSIST
--- NOTE | 2016-11-04 13:29 | NUR ---
PIV REMOVED FROM LEFT ARM WITH PATIENT REPOSITIONED TO SITTING WITH HOB UP 45 DEGREES. DISCHARGE IN PROGRESS CHEST PAIN DENIED WITH 6 FR VASCADE L/GROIN CDI
--- NOTE | 2016-11-04 13:40 | NUR ---
VERBAL AND WRITTEN DISCHARGE INSTRUCTIONS GONE OVER WITH PATIENT AND BOTH VERBALIZED UNDERSTANDING. L GROIN CDI NO BLEEDING NO HEMATOMA NOTED. LEFT VIA WC TO PARKING FOR TRANSPORT HOME
--- NOTE | 2016-11-08 10:33 | HP ---
PATIENT: EPIFANIO SANDOVAL MEDICAL RECORD: [id number] ACCOUNT: [id number] LOCATION:[facility] : 50 ADMISSION DATE: 11/04/16 HISTORY AND PHYSICAL EXAMINATION ADMITTING DIAGNOSES: 1. Left leg claudication. 2. Left iliac stenosis. 3. Coronary artery disease. 4. Peripheral vascular disease. 5. Hypertension. 6. Hyperlipidemia. HISTORY OF PRESENT ILLNESS: Mrs. Sandoval presented last week with bilateral claudication, underwent REINFORCED CONCRETE INSPECTOR stent of her right iliac, has no further claudication of the right leg. She continues to have left leg claudication. The left iliac is significantly stenosed now, brought back for REINFORCED CONCRETE INSPECTOR stent of the left iliac. REVIEW OF SYSTEMS: A standard 10-point review of systems. IMPRESSION: Left leg claudication with significant disease of the iliac. We will proceed with REINFORCED CONCRETE INSPECTOR stent of left iliac. TRANSINT:[id number] Voice Confirmation ID: [id number] DOCUMENT ID: [id number] ANNMARIE AMADOR MD at 1033 CC: [id number] DICTATION DATE: 11/04/16 1027 RECRUITING CONSULTANT: 11/04/16 1149 DEP CLI 11/04/[address] [address]
--- NOTE | 2016-11-08 10:33 | OP ---
PATIENT NAME: EPIFANIO MARTIN MEDICAL RECORD: [id number] :50 LOCATION:D.CAT ADMISSION DATE: SURGEON: ANNMARIE AMADOR MD DATE OF OPERATION: 11/04/2016 PROCEDURES: 1. PTCA stent, left iliac. 2. Unilateral iliac angiography. INDICATIONS: Claudication and peripheral vascular disease. PROCEDURE IN DETAIL: After informed consent was obtained and after detailed explanation of risks, benefits as well as alternative therapies, the patient elected to proceed with angiogram and angioplasty. The left femoral area was prepped and draped in normal sterile fashion. Left femoral artery was cannulated via modified Seldinger technique with placement of 6-Korean sheath. All catheters exchanged through this sheath. FINDINGS: The left iliac has previously placed stents. There is 70%-80% in-stent restenosis proximally of this iliac. This was addressed with #7 balloon yielding suboptimal result with continued significant stenosis. Stenting was undertaken with a 7 x 29 Cordis Shea stent. Result was 0% residual stenosis. OVERALL IMPRESSION: Successful percutaneous transluminal angioplasty stent of the left iliac going from 70% initial stenosis to 0% residual. TRANSINT:[id number] Voice Confirmation ID: [id number] DOCUMENT ID: [id number] ANNMARIE AMADOR MD at 1033 CC: [id number] DICTATION DATE: 11/04/16 1046 KNOTTING MACHINE OPERATOR PORTABLE: 11/04/16 1416 DEP CLI 11/04/16 [place] [id number] [place] [id number]
== END 2016-11-04 14:13 | disposition home or self-care (01) ==
LOC: D.CATH 08:20
PROVIDERS: Internal Medicine Interventional Cardiology
DX: I70.212 Atherosclerosis of native arteries of extremities with intermittent claudication, left leg (principal); T82.856A Stenosis of peripheral vascular stent, initial encounter